=== PATIENT | female | born 2005 | race Two or more races ===

== ENCOUNTER 2023-11-01 12:14 | Emergency (ER) | payer OTHER ==
[~2023-11-01] VITALS: Ht 157.5 cm; Wt 44.6 kg
[~2023-11-01 12:14] MED LIST: NOCURR
[2023-11-01 12:20] VITALS: TEMP 98.2
[2023-11-01 12:41] LABS: BASOPHILS % (AUTO) 0.7 % (0.0-2.0); EOSINOPHILS % (AUTO) 0.1 % (1.0-6.0); HEMATOCRIT 40.5 % (36-46); HEMOGLOBIN 13.4 g/dL (12.0-16.0); LYMPHOCYTES # (AUTO) 1.4 K/uL (1.0-4.8); LYMPHOCYTES % (AUTO) 17.3 % (22.0-44.0); MEAN CORPUSCULAR HEMOGLOBIN 28.5 pg (26.0-34.0); MEAN CORPUSCULAR HGB CONC 33.1 G/dL (31.0-37.0); MEAN CORPUSCULAR VOLUME 86 fL (80-100); MONOCYTES # (AUTO) 0.6 K/uL (0.1-1.0); NEUTROPHILS % (AUTO) 74.9 % (40.0-70.0); PLATELET COUNT (AUTO) 183 K/uL (150-450); RED CELL DISTRIBUTION WIDTH 14.1 % (11.5-14.5)
[2023-11-01 12:53] LABS: ANION GAP 16 mmol/L (8-16); CALCIUM, TOTAL 9.2 mg/dL (8.8-10.5); CARBON DIOXIDE 21 mmol/L (22-29); CHLORIDE 103 mmol/L (98-107); GLOMERULAR FILTR. RATE CALC > 60 mL/min (>60); GLUCOSE,RANDOM 117 mg/dL (70-110); POTASSIUM 3.1 mmol/L (3.5-5.1); SODIUM SERUM 140 mmol/L (136-145); UREA NITROGEN, BLOOD 8 mg/dL (7-18)
[2023-11-01 13:04] LABS: HCG,QUANTITATIVE 1 mIU/mL (0-6); LIPASE 63 U/L (16-77)
[2023-11-01 13:09] LABS: APPEARANCE,URINE CLEAR (CLEAR); BILIRUBIN,URINE NEGATIVE (NEGATIVE); COLOR,URINE LIGHT YELLOW (YELLOW); GLUCOSE, URINE (UA) NEGATIVE (NEGATIVE); KETONES,URINE 80-100 mg/dL (NEGATIVE); LEUKOCYTE ESTERASE ,URINE NEGATIVE (NEGATIVE); NITRATE,URINE NEGATIVE (NEGATIVE); OCCULT BLOOD,URINE NEGATIVE (NEGATIVE); PROTEIN,URINE TRACE mg/dL (NEGATIVE); SPECIFIC GRAVITIY, URINE 1.015 (1.003-1.030); UROBILINOGEN,URINE <=1.0 mg/dL (<=1.0)
[2023-11-01 13:22] LABS: ALANINE AMINOTRANSFERASE 20 U/L (12-78); ALBUMIN 4.1 g/dL (3.4-5.0); ALKALINE PHOSPHATASE 76 U/L (46-116); ASPARTATE AMINOTRANSFERASE 18 U/L (15-37); BILIRUBIN,TOTAL 0.9 mg/dL (0.1-1.0); TOTAL PROTEIN, SERUM 8.2 g/dL (6.4-8.2)
[2023-11-01] MEDS: SODIUM CHLORIDE 0.9% 1,000 ML IV ONE (13:47)
[2023-11-01] MEDS: PANTOPRAZOLE SODIUM 40 MG/VIAL IVP ONE (13:48)
[2023-11-01] MEDS: POTASSIUM CHLORIDE 20 MEQ ER TABLET PO ONE (13:48)
[2023-11-01] MEDS: MAG HYDROX/ALUMINUM HYD/SIMETH 30 ML SUSPENSION UDCUP PO ONE (13:48)
[2023-11-01] MEDS: ONDANSETRON HCL 4 MG/2 ML VIAL IVP ONE (13:48)
[2023-11-01 14:20] VITALS: BP 129/71; PULSE 75; RESP 18
[2023-11-01] MEDS: OxyCODONE HCL 5 MG IR TABLET PO ONE (15:18)
[2023-11-01] MEDS: SIMETHICONE 80 MG CHEWABLE TABLET CHEW ONE (15:39)
[2023-11-01] MEDS ORDERED: POLY17PO47 PO (16:07)
[2023-11-01] MEDS ORDERED: PANT-31 PO (16:07)
== END 2023-11-01 16:21 | disposition home or self-care (01) ==
LOC: EMS 12:16
DX: K59.00 Constipation, unspecified (principal); K21.9 Gastro-esophageal reflux disease without esophagitis; R10.13 Epigastric pain
CPT/HCPCS: 80048; 80076; 81003; 83690; 84702; 85025; 36415; 74019; 76705; 99285; 96361; 96374; 96375; J2405; C9113; J7030